=== PATIENT | female | born 1995 | race Caucasian/White ===

== ENCOUNTER 2017-08-20 11:45 | Emergency (ER) | payer MEDICAID, OTHER ==
[~2017-08-20 11:45] MED LIST: BENZ100 PO; PRED-503 PO; VENTAER INH
[2017-08-20 12:04] VITALS: BP 103/52; PULSE 104; RESP 14; TEMP 98.9; O2SAT 97
--- NOTE | 2017-08-20 13:18 | PD ---
HPI Chief Complaint: Complaint Time Seen by Provider: 13:05 Travel History International Travel<30 days: No Contact w/Intl Traveler<30days: No Traveled to known affect area: No History of Present Illness HPI Patient comes to the emergency department complaining of possible UTI. Patient states symptoms began approximately 3 days ago with a aching cramping in her suprapubic area. Patient states yesterday pain began radiating to her low back. Patient reports pain feels similar to previous UTIs. Patient reports she has had 4 UTIs over the past year and this feels similar. Patient reports she started her menstrual cycle last night that has since made the pain worse. Patient denies any vaginal discharge prior to starting her menstrual cycle. Reports associated nausea but denies any vomiting. Denies any fevers, chest pain, shortness of breath, loss or change in bowels. Patient reports that she believes she gets UTIs secondary to not drinking enough water or voiding enough throughout the day. Patient reports taking [id number] Midol for the pain with no improvement of symptoms. Patient reports allergy to IM Toradol, but reports can take ibuprofen without issue. PFSH Past Medical History Asthma: Yes Diminished Hearing: No Immunizations Current: Yes ?: Unknown Social History Alcohol Use: No Tobacco Use: Yes (1 PACK Q 2D) Substance Use: No Allergies-Medications (Allergen,Severity, Reaction): Coded Allergies: ketorolac (Unverified Allergy, Mild, RASH, 08/16/17) Reported Meds & Prescriptions Reported Meds & Active Scripts Active Pyridium (Phenazopyridine HCl) 100 Mg Tab 200 Mg PO Q8H Doxycycline Hyclate 100 Mg Cap 100 Mg PO BID Tessalon Perles (Benzonatate) 100 Mg Cap 100 Mg PO TID PRN 3 Days Deltasone (Prednisone) 20 Mg Tab 20 Mg PO BID 5 Days Ventolin Hfa 18 GM Inh (Albuterol Sulfate) 90 Mcg/Act Aer 2 Puff INH Q4-6H PRN Review of Systems Except as stated in HPI: all other systems reviewed are Neg Physical Exam Narrative GENERAL: Well-developed, well nourished, in no acute distress, and non-ill appearing. SKIN: Focused skin assessment warm and dry. HEAD: Atraumatic. Normocephalic. EYES: Pupils equal and round. EOMI. No scleral icterus. No injection or drainage. ENT: No nasal bleeding or discharge. Mucous membranes pink and moist. NECK: Trachea midline. No JVD. Supple. No nuclear rigidity. RESPIRATORY: No accessory muscle use. No respiratory distress. GASTROINTESTINAL: Abdomen soft, nondistended, and no guarding. Hepatic and splenic margins not palpable. Normal bowel sounds x4. No pulsatile mass. No CVA tenderness. Patient reports tenderness palpation suprapubic area. MUSCULOSKELETAL: No obvious deformities. No clubbing. No cyanosis. No edema. Full range of motion. NEUROLOGICAL: Awake and alert. No obvious cranial nerve deficits. Motor grossly within normal limits. Normal speech. PSYCHIATRIC: Appropriate mood and affect; insight and judgment normal. Data Data Last Documented VS Vital Signs Date Time Temp Pulse Resp B/P (MAP) Pulse Ox O2 Delivery O2 Flow Rate FiO2 08/20/17 12:04 98.9 104 14 103/52 (69) 97 Orders Orders Urinalysis - C+S If Indicated (08/20/17 12:06) Ed Urine Pregnancytest Poc (08/20/17 12:06) Gc And Chlamydia Pcr (08/20/17 12:06) Urine Culture (08/20/17 12:11) Ceftriaxone Inj (Rocephin Inj) (08/20/17 13:45) Lidocaine Pf 1% Inj (Xylocaine-Mpf 1% In (08/20/17 13:45) Metronidazole (Flagyl) (08/20/17 13:45) Ed Discharge Order (08/20/17 13:46) Ibuprofen (Motrin) (08/20/17 14:30) Labs Laboratory Tests Test 08/20/17 12:11 Urine Color FANTA Urine Turbidity HAZY Urine pH 5.5 Urine Specific [place] 1.030 Urine Protein 100 mg/dL Urine Glucose (UA) NEG mg/dL Urine Ketones NEG mg/dL Urine Occult Blood LARGE Urine Nitrite NEG Urine Bilirubin NEG Urine Urobilinogen 2.0 MG/DL Urine Leukocyte Esterase TRACE Urine RBC /hpf Urine WBC 16 /hpf Urine WBC Clumps RARE Urine Squamous Epithelial Cells 3 /hpf Urine Bacteria FEW /hpf Urine Mucus MANY /lpf Microscopic Urinalysis Comment CULTURE INDICATED MDM Medical Decision Making Medical Screen Exam Complete: Yes Emergency Medical Condition: Yes Differential Diagnosis UTI, , ectopic , pyelonephritis, STD, PID Narrative Course The patient presented with lower abdominal/pelvic pain and the patient was accordingly mildly tender. The patient otherwise appeared comfortable and hydrated. Urine analysis revealed evidence of questionable UTI versus contaminant. There was no evidence of pyelonephritis. Cervicitis and PID cannot be entirely excluded secondary to patient declining pelvic exam and is going to be treated. Evaluation revealed no clinical evidence or picture of acute ovarian torsion at this time. The patient appears comfortable and no distress and no vomiting. The patient is to return if worsens, pain worsens or changes, Back pain, develop persistent fever, inability to tolerate fluids with or without vomiting, unable to establish follow up or as needed. There was no evidence of an acute, surgical abdomen at this time. There was no clinical evidence to support cholecystitis/cholelithiasis, pancreatitis, perforation of gastric ulcer, colitis, diverticulitis, obstruction, volvulus, early appendicitis, abdominal or femoral herniation or hernial incarceration or strangulation at this time. There was no evidence to support vascular pathology such as AAA, mesenteric ischemia. There was also no clinical evidence by history , exam or risk factors to suggest atypical presentation of cardiac disease such as ACS, AMI or atypical angina. The patient agreed with plan of care and management. The patient was instructed to follow up with their physician Patient in no obvious distress upon re-evaluation. All pertinent laboratory result(s) discussed with patient with the exception of the urine gonorrhea and chlamydia test is pending at time of discharge. Patient was asked if they wanted to speak to my attending, which the patient did not wish to do at this time. Any questions/concerns in reference to patient diagnosis/condition discussed and clarified prior to patient's discharge. Reinforced sheer importance of close follow up with patient's primary physician or primary care clinic. Instructed patient to return to ED immediately, if symptoms return/ worsen. Patient showed understanding of above instructions. Further instructions and recommendations were detailed in discharge paperwork. Patient ambulated without difficulty out of ED at discharge. Diagnosis Primary Impression: Urinary tract infection Qualified Codes: N39.0 - Urinary tract infection, site not specified Referrals: [facility] Dept. Patient Instructions: Dysuria (ED), General Instructions, Urinary Tract Infection in Women (ED) Additional Instructions: Follow-up with your primary care physician and/or health department this week for reevaluation. Take all medication as prescribed. Drink plenty of non- caffeinated and nonalcoholic fluids. Return to the emergency department if symptoms get worse. Med/Other Pt SpecificInfo: Prescription(s) given Scripts Phenazopyridine (Pyridium) 100 Mg Tab 200 MG PO Q8H for Dysuria, #6 TAB 0 Refills Prov: Tania Martínez MD 08/20/17 Doxycycline Hyclate (Doxycycline Hyclate) 100 Mg Cap 100 MG PO BID for Infection, #28 CAP 0 Refills Prov: Tania Martínez MD 08/20/17 Disposition: 01 DISCHARGE HOME Condition: Isauro Hamm Aug 20, 2017 13:18
[2017-08-20 13:19] LABS: BACTERIA, URINE FEW /hpf; BILIRUBIN, URINE NEG (NEG); BLOOD, URINE LARGE (NEG); GLUCOSE,URINE NEG (NEG); KETONE, URINE NEG (NEG); MUCUS URINE MANY /lpf (OCC); NITRITE,URINE NEG (NEG); PH, URINE 5.5 (5.0-8.5); SQUAMOUS EPITHELIAL CELL URINE 3 /hpf (0-5); URINE LEUKOCYTE ESTERASE TRACE (NEG); WHITE BLOOD CELL CLUMPS RARE
[2017-08-20 13:20] LABS: URINE COLOR AMBER (YELLW/STRAW)
[2017-08-20] MEDS ORDERED: PHEN0.4T PO (13:41)
[2017-08-20] MEDS ORDERED: DOXY100C PO (13:41)
[2017-08-20] MEDS ORDERED: LIDOCAINE HCL 1% PF 30 ML VIAL XX ONE (13:45)
[2017-08-20] MEDS ORDERED: metroNIDAZOLE 500 MG TAB PO ONE (13:45)
[2017-08-20] MEDS ORDERED: IBUPROFEN 800 MG TAB PO ONE (14:30)
== END 2017-08-20 15:02 | disposition home or self-care (01) ==
LOC: NEPK 11:45
DX: N39.0 Urinary tract infection, site not specified (principal); J45.909 Unspecified asthma, uncomplicated; F17.200 Nicotine dependence, unspecified, uncomplicated
CPT/HCPCS: 81001; 84703; 87086; 87491; 87591; 96372; 99283; J0696